=== PATIENT | female | born 1980 | race Caucasian/White ===

== ENCOUNTER 2022-02-02 05:15 | Day surgery (SDC) | payer BC ==
[~2022-02-02] VITALS: Ht 165.1 cm; Wt 78.9 kg
[2022-02-02 06:57] LABS: HCG,QUAL RESULT NEGATIVE (NEGATIVE)
[2022-02-02] MEDS ORDERED: cefTRIAXone 1 GM IVPB PREMIX 50 ML IV ONE ×2 (07:46→07:48)
[2022-02-02] MEDS ORDERED: HYDROmorphone 1 MG/ML INJ. CARTRIDGE IVP PRN ×2 (08:15)
[2022-02-02] MEDS ORDERED: ONDANSETRON HCL 4 MG/2 ML VIAL IVP PRN (08:15)
[2022-02-02] MEDS ORDERED: DEXAMETHASONE SOD PHOSPHATE 4 MG/ML VIAL ONE (08:50)
[2022-02-02] MEDS ORDERED: METOCLOPRAMIDE HCL 10 MG/2 ML VIAL ONE (08:50)
[2022-02-02] MEDS ORDERED: DESFLURANE 15 MIN GAS INH ONE (08:50)
[2022-02-02] MEDS ORDERED: KETOROLAC TROMETHAMINE 30 MG VIAL ONE (08:50)
[2022-02-02] MEDS ORDERED: PROPOFOL 200MG/ 20ML VIAL (DIPRIVAN) IV ONE (08:50)
[2022-02-02] MEDS ORDERED: ONDANSETRON HCL 4 MG/2 ML VIAL ONE (08:50)
[2022-02-02] MEDS ORDERED: fentaNYL CITRATE/PF 100 MCG/2 ML AMP IVP ONE (08:50)
[2022-02-02] MEDS ORDERED: LR 1,000 ML IV.SOLN IV ONE (08:50)
[2022-02-02 09:40] VITALS: BP_SYST 126
== END 2022-02-02 10:55 | disposition home or self-care (01) ==
LOC: SMU 05:15 → SDS 05:15
PROVIDERS: ATTEND Urology
DX: D49.4 Neoplasm of unspecified behavior of bladder (principal); E11.9 Type 2 diabetes mellitus without complications; E03.9 Hypothyroidism, unspecified; F32.9 Major depressive disorder, single episode, unspecified; Z79.899 Other long term (current) drug therapy
CPT/HCPCS: 36415 ×2; 52204; 52235; 71046; 82962; 84703; 87426; 87635; 88307; 93005; J0696; J1100; J1885; J2405; J2704; J2765; J3010; J7120; U0003